=== PATIENT | male | born 1955 | race Caucasian/White ===

== ENCOUNTER 2022-05-23 17:21 | Emergency (ER) | payer MEDICARE, BC ==
[2022-05-23] MEDS ORDERED: Lidocaine 1% 5 ML VIAL INJECT ONE (17:25)
[2022-05-23] MEDS ORDERED: Bacitracin Oint 1 GM U/D Packet TOP ONE (17:25)
== END 2022-05-23 18:30 | disposition home or self-care (01) ==
LOC: JP.ED 17:21
DX: S61.411A Laceration without foreign body of right hand, initial encounter (principal); I10 Essential (primary) hypertension; E11.9 Type 2 diabetes mellitus without complications; Z79.84 Long term (current) use of oral hypoglycemic drugs; Z79.899 Other long term (current) drug therapy; W26.8XXA Contact with other sharp object(s), not elsewhere classified, initial encounter; Y92.59 Other trade areas as the place of occurrence of the external cause
CPT/HCPCS: 12002; 99282